=== PATIENT | female | born 1990 | race Caucasian/White ===

== ENCOUNTER 2019-05-24 23:23 | Emergency (ER) | payer OTHER ==
[~2019-05-24] VITALS: Ht 157.5 cm; Wt 68.0 kg
[2019-05-24 23:25] VITALS: BP_SYST 126
--- NOTE | 2019-05-24 23:25 | NUR ---
Patient to ER bed 04 to gown for evaluation. Side rails up. Report given to CAROL Dominguez.
--- NOTE | 2019-05-24 23:41 | NUR ---
Note jeff in [facility] - 05/25/19 at 0007 by [email or web address] Patient to ER bed 4 to [facility] for evaluation. Side rails up.
--- NOTE | 2019-05-24 23:42 | NUR ---
# 20 gauge angiocath placed to RAC. Use of asceptic technique. Opsite placed over site. Blood return noted. Flushed with 10 cc of normal saline. No evidence of infiltration noted. Patient tolerated well.
--- NOTE | 2019-05-24 23:43 | NUR ---
ER Dr. Benitez at bedside examining patient.
[2019-05-24] MEDS ORDERED: LORazepam 2 MG/ML VIAL (FOR ER USE) IVP ONE (23:45)
--- NOTE | 2019-05-24 23:45 | NUR ---
Pt complains of having a condom stuck in her vagina for about 1hr. Pt appears to be very anxious and cannot get it out. Pt denies N/V, fever. No other injuries/complaints per patient or noted.
[2019-05-25] MEDS ORDERED: PROPOFOL 200MG/ 20ML VIAL (DIPRIVAN) IV ONE ×2 (00:15→01:45)
--- NOTE | 2019-05-25 00:32 | NUR ---
Patient signed consent for moderate sedation procedure and placed in chart.
--- NOTE | 2019-05-25 00:47 | NUR ---
"Time out" done at this time.
--- NOTE | 2019-05-25 00:51 | NUR ---
Received verbal order from MD Benitez for another 30 mg Propofol. Medication administered by MD Benitez.
--- NOTE | 2019-05-25 00:54 | NUR ---
Moderate sedation complete at this time. Patient alert and verbal. No acute distress noted at this time.
[2019-05-25 01:27] VITALS: BP_SYST 122
--- NOTE | 2019-05-25 01:27 | NUR ---
Patient given written and verbal discharge instructions and verbalizes understanding. ER MD discussed with patient the results and treatment provided. Patient in stable condition. ID arm band removed. IV catheter removed intact and dressing applied, no active bleeding. Rx of Naprosyn given. Patient educated on pain management and to follow up with PMD. Pain Scale 0. Opportunity for questions provided and answered. Medication side effect fact sheet provided.
== END 2019-05-25 01:27 | disposition home or self-care (01) ==
LOC: SED 23:23
DX: T19.2XXA Foreign body in vulva and vagina, initial encounter (principal); X58.XXXA Exposure to other specified factors, initial encounter; Y93.89 Activity, other specified; Y92.89 Other specified places as the place of occurrence of the external cause; Y99.8 Other external cause status
CPT/HCPCS: 96374; 99152; 99285; J2060; J2704

== ENCOUNTER 2022-07-02 08:39 | Emergency (ER) | payer OTHER ==
[~2022-07-02] VITALS: Ht 165.1 cm; Wt 90.7 kg
--- NOTE | 2022-07-02 08:53 | NUR ---
Patient to ER bed 4 to gown for evaluation. Side rails up. Report given to JOHN MEDINA
[2022-07-02 08:54] VITALS: BP_SYST 99
--- NOTE | 2022-07-02 08:55 | NUR ---
DR MCALLISTER AT BEDSIDE FOR EVALUATION
[2022-07-02] MEDS ORDERED: KETOROLAC TROMETHAMINE 60 MG/2 ML VIAL IM ONE (09:00)
--- NOTE | 2022-07-02 09:05 | NUR ---
PT STATE SUDDEN ONSET OF RIGHT LOWER QUADRANT, DENIES N/V.
--- NOTE | 2022-07-02 09:10 | NUR ---
PT REFUSED TO HAVE TORADOL, PT STATES SHE IS UNABLE TO GIVE US ANY URINE AT THIS TIME AND STATES THERE IS NO WAY SHE IS . PT SIGNED CONSENT FOR CT WITHOUT URINE PREG DONE. DR MCALLISTER AWARE
--- NOTE | 2022-07-02 09:14 | NUR ---
TAKEN TO RADIOLOGY VIA [facility]
--- NOTE | 2022-07-02 09:27 | NUR ---
PT RETURNED FROM RADIOLOGY AND PLACED BACK TO BED #4. OFFERED TORADOL AGAIN AND PT STILL REFUSING.
--- NOTE | 2022-07-02 09:46 | NUR ---
FAMILY BROUGHT BACK FOR SUPPORT
[2022-07-02 10:01] LABS: BASOPHILS % (AUTO) 0.4 % (0.0-2.0); EOSINOPHILS # (AUTO) 0.3 K/uL (0.0-0.4); EOSINOPHILS % (AUTO) 2.6 % (0.0-4.0); HEMATOCRIT 39.4 % (36-48); LYMPHOCYTES # (AUTO) 2.4 K/uL (1.0-5.5); LYMPHOCYTES % (AUTO) 24.6 % (20.5-51.5); MEAN CORPUSCULAR VOLUME 84 fL (79.0-98.0); MONOCYTES # (AUTO) 0.5 K/uL (0.0-1.0); MONOCYTES % (AUTO) 5.1 % (1.7-9.3); NEUTROPHILS # (AUTO) 6.6 K/uL (1.8-7.7); NEUTROPHILS % (AUTO) 67.3 % (40.0-70.0); PLATELET COUNT (AUTO) 197 K/uL (130-430); RED BLOOD CELL COUNT(AUTO) 4.68 MIL/uL (4.2-6.2); RED CELL DISTRIBUTION WIDTH 13.6 % (9.0-15.0); WHITE BLOOD COUNT (AUTO) 9.8 K/uL (4.8-10.8)
--- NOTE | 2022-07-02 10:02 | NUR ---
PT STATES SHE IS UNABLE TO GIVE A URINE SPECIMEN UNTIL SHE DRINKS WATER. DR MCALLISTER STATES IT IS OK FOR PT TO GET WATER. WATER GIVEN, AWAITING SPECIMEN
[2022-07-02 10:06] LABS: ANION GAP 10 (5-15); CALCIUM 9.4 mg/dL (8.4-11.0); CHLORIDE 102 mmol/L (98-107); CREATININE 1.11 mg/dL (0.55-1.30); GLUCOSE 112 mg/dL (70-99); POTASSIUM 4.1 mmol/L (3.5-5.1); UREA NITROGEN, BLOOD 8 mg/dL (8-21)
[2022-07-02 10:11] LABS: GFR AFRICAN AMERICAN 74 mL/min (>90)
[2022-07-02 10:20] LABS: ALANINE AMINOTRANSFERASE 110 U/L (12-78); ALBUMIN 3.9 g/dL (3.4-4.8); AMYLASE 47 U/L (0-100); ASPARTATE AMINOTRANSFERASE 52 U/L (10-37); LIPASE 68 U/L (73-393); TOTAL BILIRUBIN 0.6 mg/dL (0.0-1.0)
[2022-07-02 10:21] LABS: C-REACTIVE PROTEIN QUANT < 0.2 mg/dL (0-0.5)
[2022-07-02 10:36] LABS: BILIRUBIN,URINE NEGATIVE (NEGATIVE); BLOOD, URINE NEGATIVE (NEGATIVE); CLARITY/URINE CLEAR (CLEAR); COLOR,URINE YELLOW (YELLOW); GLUCOSE,URINE NEGATIVE (NEGATIVE); KETONES,URINE NEGATIVE (NEGATIVE); LEUKOCYTE ESTERASE ,URINE NEGATIVE (NEGATIVE); NITRITE, URINE NEGATIVE (NEGATIVE); PROTEIN URINE NEGATIVE (NEGATIVE); UROBILINOGEN,URINE 0.2 (0.2-1.0)
[2022-07-02] MEDS ORDERED: IBUP-1969 PO (10:50)
[2022-07-02] MEDS ORDERED: HYDR-3917 PO ×2 (10:51→11:35)
[2022-07-02 10:58] VITALS: BP_SYST 137
--- NOTE | 2022-07-02 10:59 | NUR ---
Patient given written and verbal discharge instructions and verbalizes understanding. ER MD discussed with patient the results and treatment provided. Patient in stable condition. ID arm band removed. Rx of NORCO, IBUPROFEN given. Patient educated on pain management and to follow up with PMD. Pain Scale 0/10. Opportunity for questions provided and answered. Medication side effect fact sheet provided.
== END 2022-07-02 10:59 | disposition home or self-care (01) ==
LOC: SED 08:39
DX: R10.31 Right lower quadrant pain (principal); R11.0 Nausea; Z88.1 Allergy status to other antibiotic agents; Z79.899 Other long term (current) drug therapy
CPT/HCPCS: 36415; 76376; 80053; 81003; 81025; 82150; 83690; 85025; 86140; 99284; J1885